=== PATIENT | male | born 1980 | race Caucasian/White ===

== ENCOUNTER 2016-06-20 09:08 | Emergency (ER) | payer OTHER ==
--- NOTE | 2016-06-20 10:41 | ED ---
Skin/Abscess/FB HPI - General Chief complaint: Skin/Abscess/Foreign Body Stated complaint: abcess on arm Time Seen by Provider: 06/20/16 10:09 Source: patient, RN notes reviewed Mode of arrival: ambulatory Limitations: no limitations - History of Present Illness Initial comments: Patient is a 35-year-old male presents to the emergency room for evaluation of left arm abscess. Patient states he has a history of multiple abscesses. Patient states that he is a heroin abuser. Patient states he is currently at [facility] for rehab. Patient states last time he used was on Saturday. Patient states he has an abscess forming in his left distal upper arm. Patient states he had an abscess on his right arm that he was sent to emergency surgery before. Patient states he's been on Bactrim for the past 2 days. Patient states the pain is getting worse. Patient denies any fevers or chills. Patient states he is having 10 out of 10 pain at the area of abscess. Patient denies any numbness or tingling in his fingers. Patient denies any other injuries or complaints. Patient denies any known history of MRSA. - Related Data Home Medications Medication Instructions Recorded Confirmed Acetaminophen [Tylenol 8 Hour] 650 mg PO Q4H PRN MDD 6TABS/24HOURS 06/20/16 Acyclovir 400 mg PO DAILY@0600 06/20/16 06/20/16 Buprenorphine HCl [Subutex] 4 mg SL DIRECTED 06/20/16 06/20/16 Calcium Carb/Magnesium Cmb #10 2 tab PO TID PRN 06/20/16 06/20/16 [Edmundo-Mag 500-250 MG Chewable] Chlorpheniramine Maleate 4 mg PO Q4H PRN MDD 16MG/24HOURS 06/20/16 06/20/16 [Chlor-Trimeton] Divalproex Sodium [Depakote] 125 mg PO TID@0600,1500,2200 06/20/16 06/20/16 Hyoscyamine Sulfate [Levsin] 0.125 mg PO QID PRN 06/20/16 06/20/16 Ibuprofen [Motrin] 600 mg PO Q6H PRN 06/20/16 06/20/16 Loperamide [Imodium] 4 mg PO BID PRN MDD 8MG/24HOURS 06/20/16 06/20/16 Ondansetron HCl [Zofran] 8 mg PO Q6H PRN 06/20/16 06/20/16 QUEtiapine XR [SEROquel XR] 50 mg PO HS@2200 06/20/16 06/20/16 Sulfamethoxazole/Trimethoprim 1 tab PO BID@0600,1730 06/20/16 06/20/16 [Bactrim DS 800-160 mg] Trimethobenzamide [Tigan] 300 mg PO Q6H PRN 06/20/16 06/20/16 busPIRone HCL [Buspar] 7.5 mg PO BID@0600,1800 06/20/16 06/20/16 cloNIDine HCL [Catapres] 0.1 mg PO Q4H PRN 06/20/16 06/20/16 cloNIDine HCL [Catapres] 0.1 mg PO TID@0600,1500,2200 06/20/16 06/20/16 prednisoLONE ACETATE 1% OPHTH 1 drops LEFT EYE TID@0600,1500,2200 06/20/1606/20 [Pred Forte 1%] Previous Rx's Medication Instructions Recorded Sulfamethox-Tmp 800-160Mg [Bactrim 2 each PO Q12HR #56 tab 06/20/16 Ds] Allergies Allergy/AdvReac Type Severity Reaction Status Date / Time No Known Allergies Allergy Verified 06/20/16 09:54 Review of Systems ROS Statement: Those systems with pertinent positive or pertinent negative responses have been documented in the HPI. ROS Other: All systems not noted in ROS Statement are negative. Past Medical History Past Medical History: No Reported History History of Any Multi-Drug Resistant Organisms: None Reported Additional Past Surgical History / Comment(s): abscess removal on right arm Past Psychological History: Bipolar, Depression Smoking Status: Current every day smoker Past Alcohol Use History: None Reported Past Drug Use History: Cocaine, Heroin General Exam - General Exam Comments Initial Comments: Sitting in exam room, no acute distress. Limitations: no limitations General appearance: alert, in no apparent distress Head exam: Present: atraumatic, normocephalic, normal inspection Eye exam: Present: normal appearance ENT exam: Present: normal exam Neck exam: Present: normal inspection Respiratory exam: Present: normal lung sounds bilaterally. Absent: respiratory distress Cardiovascular Exam: Present: regular rate, normal rhythm, normal heart sounds Left Upper Arm exam: Present: tenderness (2 cm abscess on the distal upper arm. Mild surrounding erythema. No streaking. Full range of motion of elbow.). Absent: normal inspection Neuro motor exam: Present: wrist extension intact, thumb opposition intact, thumb IP flexion intact, thumb adduction intact, fingers 2-5 abduction intact Vascular: Present: normal capillary refill (Capillary refill less than 2 second) , radial pulse (2+), ulnar pulse (2+) Back exam: Present: normal inspection Neurological exam: Present: alert, oriented X3, CN II-XII intact, normal gait Psychiatric exam: Present: normal affect, normal mood Skin exam: Present: warm, dry, intact, normal color. Absent: rash Course Vital Signs 06/20/16 06/20/16 09:15 11:32 Temperature 98.4 F 98.7 F Pulse Rate 102 H 99 Respiratory 20 18 Rate Blood Pressure 126/90 126/68 O2 Sat by Pulse 100 99 Oximetry Procedures - Incision & Drainage Consent Obtained: verbal consent Site: other (left arm) Anesthetic Used: lidocaine 1% Amount (mLs): 8 I&D Cleaning Method: Betadine Scalpel Used: #11 I&D Drainage Obtained: Pus, Blood Packing: Iodoform Culture Obtained?: Yes Patient Tolerated Procedure: well, no complications Medical Decision Making - Medical Decision Making Patient is a 35-year-old male presents to the emergency room for evaluation of left arm abscess. Abscess was incised and drained. Iodoform packing placed. Culture pending. Patient states he has been taking 1 tab twice a day of Bactrim. Will increase the strength of Bactrim. Advised patient to return for any worsening symptoms. Patient states he understands everything that was discussed with him. Return parameters discussed. Discussed with Dr. Malik. Disposition Clinical Impression: Abscess of left arm Disposition: HOME SELF-CARE Condition: Good Instructions: Abscess Incision and Drainage (ED), Abscess (ED) Additional Instructions: Discontinue current antibiotic. Fill prescription to take antibiotics as directed. Take ibuprofen as needed for pain. Warm compresses. Please follow up with primary care provider in 1-2 days. If any new symptom arises or symptoms worsen, return to ER as soon as possible. Prescriptions: Sulfamethox-Tmp 800-160Mg [Bactrim Ds] 2 each PO Q12HR #56 tab Referrals: Nonstaff,Physician [Primary Care Provider] - 1-2 days Time of Disposition: 11:09
[2016-06-20 11:34] VITALS: BP 126/68; PULSE 99; RESP 18; TEMP 98.7
== END 2016-06-20 11:34 | disposition home or self-care (01) ==
LOC: EC 09:08
DX: L02.414 Cutaneous abscess of left upper limb (principal); F11.10 Opioid abuse, uncomplicated; F31.9 Bipolar disorder, unspecified; F17.200 Nicotine dependence, unspecified, uncomplicated; Z79.891 Long term (current) use of opiate analgesic; Z79.899 Other long term (current) drug therapy; Z98.890 Other specified postprocedural states
CPT/HCPCS: 10060; 87070; 87205; 99283